=== PATIENT | male | born 1995 | race Caucasian/White ===

== ENCOUNTER 2016-07-15 12:49 | Emergency (ER) | payer OTHER ==
[~2016-07-15] VITALS: Ht 167.6 cm; Wt 54.7 kg
[2016-07-15 15:51] LABS: HEMATOCRIT 44.1 % (38.0-50.0); MCHC 34.9 G/DL (30.0-36.0); MEAN PLAT.VOLUME 9.6 uM^3 (9.0-12.4); PLATELET COUNT 337 K/uL (156-360); RBC DIS.WIDTH-CV 12.5 % (11.8-14.6); RBC DIS.WIDTH-SD 38.7 % (39-53); RED BLOOD COUNT 5.13 M/uL (4.00-5.50); WHITE BLOOD COUNT 11.9 K/uL (4.1-10.2)
[2016-07-15 16:00] LABS: CHLORIDE 106 mEq/L (99-109); POTASSIUM 4.2 mEq/L (3.7-5.4); SODIUM 142 mEq/L (136-147)
[2016-07-15 16:02] LABS: GLUCOSE 99 mg/dL (70-99)
[2016-07-15 16:04] LABS: ANION GAP 9 MEQ/L (2-14)
[2016-07-15 16:05] LABS: SERUM ETHYL ALCOHOL < 10 mg/dL
[2016-07-15 16:06] LABS: GFR ESTIMATE (CALCULATED) > 59 mL/min/
[2016-07-15 16:07] LABS: UREA NITROGEN (BUN) 7 mg/dL (9-23)
[2016-07-15 16:20] LABS: AMPHETAMINE NEGATIVE (500 ng/mL); BARBITURATES NEGATIVE (200 ng/mL); BENZODIAZEPINES PRESUMPTIVE POSITIVE (150 ng/mL); COCAINE NEGATIVE (150 ng/mL); INTERNAL CONTROLS VALID? YES; METHADONE NEGATIVE (200 ng/mL); METHAMPHETAMINE NEGATIVE (500 ng/mL); OPIATES (MORPHINE) NEGATIVE (100 ng/mL); OXYCODONE NEGATIVE (100 ng/mL); PHENCYCLIDINE NEGATIVE (25 ng/mL); PROPOXYPHENE NEGATIVE (300 ng/mL); THC CANNABINOIDS NEGATIVE (50 ng/mL); TRICYCLIC ANTIDEPRESSANTS NEGATIVE (300 ng/mL)
[2016-07-15 16:21] LABS: ADD MEDTOX COMMENT Y
[2016-07-15 17:07] LABS: BENZODIAZEPINES, URINE SCREEN POSITIVE (200 ng/mL)
[2016-07-15 17:22] VITALS: BP 116/90
== END 2016-07-15 17:24 | disposition home or self-care (01) ==
LOC: EME 12:49
PROVIDERS: Emergency Medicine
DX: T50.901A Poisoning by unspecified drugs, medicaments and biological substances, accidental (unintentional), initial encounter (principal); F17.200 Nicotine dependence, unspecified, uncomplicated
CPT/HCPCS: 80048; 84999; 85027; 99281; 99284; G0480